=== PATIENT | female | born 1985 | race Hispanic/Latino ===

== ENCOUNTER 2018-03-09 05:40 | Day surgery (SDC) | payer OTHER ==
[~2018-03-09] VITALS: Ht 154.9 cm; Wt 93.0 kg
--- NOTE | ~2018-03-09 | OR ---
[facility] [address] [place], [place] [address] Draft DATE OF OPERATION: 03/09/2018 SURGEON: Kaylah Herman MD PREOPERATIVE DIAGNOSES: Dyspareunia, dysmenorrhea. POSTOPERATIVE DIAGNOSES: Dyspareunia, dysmenorrhea, pelvic adhesions. PROCEDURE: Laparoscopy with lysis of adhesions. ANESTHESIA: General ET. ESTIMATED BLOOD LOSS: Minimal. DRAINS: None. INDICATIONS AND FINDINGS: The patient is a 32-year-old female, 4, para 2, AB 2, who has been having issues with increasing dyspareunia. She was also finding that her periods were more painful, especially on OCPs. Was felt that she may have endometriosis and that further evaluation was indicated. At the time of surgery, exam under anesthesia, which was unremarkable. At the time of laparoscopy, there was no evidence of endometriosis. She did have some adhesions around her right tube and ovary presumably from her prior appendectomy. DESCRIPTION OF PROCEDURE: The patient was prepped and draped in the dorsal lithotomy position. An open-sided speculum was placed. The cervix was visualized and grasped on the anterior lip with a single-tooth tenaculum. A Hulka clamp was then placed and tenaculum and speculum removed. Attention was then directed above. The infraumbilical area was injected with 0.5% Marcaine plain. An incision was made with a knife. Each layer was then serially elevated and incised until the fascia was opened and identified. Stay sutures of 0 Vicryl were placed. The peritoneum was opened bluntly. The Piotr cannula was then placed and tied into place. Following this, the CO2 was introduced into the abdomen. PATIENT NAME: RICH WEEMS OPERATIVE REPORT DATE OF : 85 REPORT #: [id number] PHYSICIAN: KAYLAH HERMAN MD PCP: NO PRIMARY CARE PHYSICIAN REPORT IS CONFIDENTIAL AND NOT TO BE RELEASED WITHOUT AUTHORIZATION [facility] [address] [place], [place] [address] Draft The abdomen was inspected and it was felt that a 2nd port was needed. This was placed on the patient's left side slightly below the umbilicus and fairly laterally. This area was transilluminated, injected with the Marcaine, incision made with a knife and a 5 mm port placed under direct vision. The pelvis was then thoroughly investigated. There was no evidence of any endometriosis in any area including over the ovaries and then the cul-de-sac. There were adhesions around the right tube and ovary and these were incised with monopolar scissors. This allowed for freedom on the right side. Following this, there appeared to be no other pathology, the procedure was terminated. The instruments were removed from the abdomen after allowing as much CO2 as possible to escape. The fascial incision of the umbilicus was reidentified and was closed with a running suture of 0 Vicryl. The skin incisions were closed with subcuticular sutures of 3-0 Vicryl Rapide. Attention was directed down below and the instruments were removed. Good hemostasis was noted at the cervix. The Laguerre catheter was removed at the end of the case as well. The patient was taken to the recovery room in good condition. Kaylah Herman MD PJW/MODL /[id number] Copies: ~ PATIENT NAME: RICH WEEMS MAVERICK OPERATIVE REPORT DATE OF : 85 REPORT #: [id number] PHYSICIAN: KAYLAH HERMAN MD PCP: NO PRIMARY CARE PHYSICIAN REPORT IS CONFIDENTIAL AND NOT TO BE RELEASED WITHOUT AUTHORIZATION
[~2018-03-09 05:40] MED LIST: ALEVE220 MG PO; HYDROCODON-ACE1 EA10 PO; IBUPROFEN200 M1 PO; MONO-LINYAH1 EACH PO; TRAMADOL HCL50 MG PO
--- NOTE | 2018-03-09 09:14 | NUR ---
03/09/18 0914 Cheli Hutchinson 0977-PATIENT ARRIVED TO PACU ON 10L MASK O2 SAT 100% NONAROUSABLE. ORAL AIRWAY IN PLACE. 2 SITES TO ABDOMEN BANDAIDS CDI. DANA PAD AND MESH UNDERWEAR IN PLACE. RR EVEN. SR.
--- NOTE | 2018-03-09 10:01 | NUR ---
PT REQ TO GET UP TO BR. PT AMBULATES WELL AND DENIES DIZZINESS. PT UNABLE TO VOID. BACK IN BED. SCDS IN PLACE. JELLO AND ICED WATER GIVEN. FAMILY @ BS. CALL LIGHT W/IN REACH.
[2018-03-09] MEDS ORDERED: ONDANSETRON ODT8 MG PO (10:15)
[2018-03-09] MEDS ORDERED: PERCOCET 5-3251 EACH PO (10:15)
--- NOTE | 2018-03-09 10:35 | NUR ---
PT RESTING,ALERT, ORIENTED AND SUPPORTED BY FAMILY. PT SEEMS PREPARED, HAD FEW QUESTIONS, EXTENDED A BLESSING. WILL FOLLOW NEEDED
--- NOTE | 2018-03-09 10:58 | NUR ---
PT UP TO BR W/RN STANDBY. PT AMBULATES WELL AND DENIES DIZZINESS. PT VOIDS 100 ML BLOOD TINGED URINE AND REQ DC HOME. DC INSTRUCTIONS GIVEN AND PT VERBALIZES UNDERSTANDING. PT DRESSING SELF.
--- NOTE | 2018-03-09 13:18 | NUR ---
LE 1110: PT TRANSFERS SELF TO AND PERSONAL VEHICLE AND DOES THAT WELL.
== END 2018-03-09 11:10 | disposition home or self-care (01) ==
LOC: DS 05:40
PROVIDERS: Obstetrics & Gynecology
PROC: 0UN04ZZ Release Right Ovary, Percutaneous Endoscopic Approach (ICD-10-PCS; principal; 2018-03-09 06:45)
DX: N94.12 Deep dyspareunia (principal); N94.11 Superficial (introital) dyspareunia; N94.6 Dysmenorrhea, unspecified; N73.6 Female pelvic peritoneal adhesions (postinfective); E66.01 Morbid (severe) obesity due to excess calories; G43.909 Migraine, unspecified, not intractable, without status migrainosus; Z88.5 Allergy status to narcotic agent; Z68.41 Body mass index [BMI] 40.0-44.9, adult
CPT/HCPCS: 00840; J0330; J1100; J1885; J2250; J2405; J2597; J2704; J2765; J3010; J7120

== ENCOUNTER 2020-03-06 15:03 | Observation (INO) | payer OTHER ==
[~2020-03-06] VITALS: Ht 152.4 cm; Wt 103.0 kg
--- NOTE | ~2020-03-06 | OBS ---
[facility] [address] [place], [place] [address] Draft DATE OF SERVICE: 03/06/2020 NOTE: The patient is a 34-year-old female, who underwent TLHBS and cystoscopy earlier today. The surgery itself was completely uncomplicated. She was discharged home several hours after surgery in apparent good condition; however, when she arrived at home, her pain seemed to dramatically increase, and she had which she described as a lot of vaginal bleeding, which was running down her legs, soaking maxi pad. She described it as bright red, but thin. The patient also reports migraine since her surgery. For her past medical history, please see her initial H and P. On exam, her vital signs were stable. She is a well-developed, obese female in moderate distress. She was walking very slowly with apparent abdominal discomfort. The abdomen had active bowel sounds. It was soft, but diffusely tender. The incisions appeared to be normal with minimal drainage. A speculum exam was then done, and there was only a small amount of blood within the vault. The cuff appeared intact. IMPRESSION: Because of the apparent heavy bleeding in her increased pain, it was felt prudent to admit her for observation to be sure this did not represent a postop bleed from the cuff. PLAN: Admit to obs, IV hydration, n.p.o., IV pain medications, check serial CBCs, and possible return to OR if ongoing heavy bleeding. MD PAOLA Perez/YOLY /[id number] Copies: ~ PATIENT NAME: RICH WEEMS OBSERVATION NOTE DATE OF : 85 REPORT #: [id number] PHYSICIAN: ROLA NIETO MD PCP: PAT CHIN NP REPORT IS CONFIDENTIAL AND NOT TO BE RELEASED WITHOUT AUTHORIZATION
--- OUTSIDE RECORDS SUMMARY | ~2020-03-06 | XMS | Encounter Summary ---
Demographics + + + | Address | [address] | | | [place] [address] | + + + | Home Phone | | + + + | Preferred Language | Unknown | + + + | Marital Status | Single | + + + | Roman Catholic Affiliation | Unknown | + + + | Race | White | + + + | Ethnic Group | or | + + + Author + + + | Author | [facility] | | | and [place] | + + + | Organization | [facility] | | | and [place] | + + + | Address | Unknown | + + + | Phone | Unavailable | + + + Support + + +---------+ + | Name | Relationship | Address | Phone | + + +---------+ + | Nehal Rooney | ECON | Unknown | Unavailable | + + +---------+ + Care Team Providers + +------+ + | Care Machine Pack Assembler Name | Role | Phone | + +------+ + PCP | Unavailable | + +------+ + Encounter Details +--------+ + + + + | Date | Type | Department | Care Team | Description | +--------+ + + + + | 02/04/ | Orders Only | [facility] | [place], | | | 2016 | | [facility] | [address] | | | | | [address] | [address] [place], | | | | | [address] [place], [place] | [place] [address] | | | | | [address] | [phone] | | | | | [phone] | | | +--------+ + + + + Social History + +-------+ +--------+------+ | Tobacco Use | Types | Packs/Day | Years | Date | | | | | Used | | + +-------+ +--------+------+ | Never Smoker | | | | | + +-------+ +--------+------+ + + + | Sex Assigned at | Date Recorded | | | | + + + | Not on file | | + + + documented as of this encounter Plan of Treatment Not on filedocumented as of this encounter Visit Diagnoses Not on filedocumented in this encounter"
--- OUTSIDE RECORDS SUMMARY | ~2020-03-06 | XMS | Encounter Summary ---
Demographics + + + | Address | [address] | | | [place] [address] | + + + | Home Phone | | + + + | Preferred Language | Unknown | + + + | Marital Status | Single | + + + | Uatsdin Affiliation | Unknown | + + + | Race | White | + + + | Ethnic Group | or | + + + Author + + + | Author | [facility] | | | and [place] | + + + | Organization | [facility] | | | [...] Team Providers + +------+ + | Care Slasher Machine Operator Name | Role | Phone | + +------+ + PCP | Unavailable | + +------+ + Encounter Details +--------+ + + + + | Date | Type | Department | Care Team | Description | +--------+ + + + + | 07/26/ | Emergency | [facility] | Laurence Gorman, | Intractable migraine | | 2016 | | MEDICAL [facility]ENTER | [facility] [address] | without status | | | | EMERGENCY CENTER | [place] [address] | migrainosus, | | | | [address] [facility] | [phone] | unspecified migraine | | | | [place], [place] | | type | | | | [address] | | | | | | [phone] | | | +--------+ + + + + Social History + +-------+ +--------+------+ | Tobacco Use | Types | Packs/Day | Years | Date | | | | | Used | | + +-------+ +--------+------+ | Never Assessed | | | | | + +-------+ +--------+------+ + + + | Sex Assigned at | Date Recorded | | | | + + + | Not on file | | + + + documented as of this encounter Last Filed Vital Signs + + + + + | Vital Sign | Reading | Time Taken | Comments | + + + + + | Blood Pressure | 104/60 | 07/26/2015 11:49 PM | | | | | PST | | + + + + + | Pulse | 91 | 07/26/2015 11:49 PM | | | | | PST | | + + + + + | Temperature | 36.9 C (98.4 F) | 07/26/2015 11:49 PM | | | | | PST | | + + + + + | Respiratory Rate | 16 | 07/26/2015 11:49 PM | | | | | PST | | + + + + + | Oxygen Saturation | - | - | | + + + + + | Inhaled Oxygen | - | - | | | Concentration | | | | + + + + + | Weight | 94.5 kg (208 lb 5.4 | 07/26/2015 11:49 PM | | | | oz) | PST | | + + + + + | Height | - | - | | + + + + + | Body Mass Index | - | - | | + + + + + documented in this encounter Laurence Moody, MD - 07/26/2015 9:23 PM PST ED Provider Notes by Rosalie Gorman MD at 07/26/152122 Author: Rosalie Gorman MD Service: (none) Author Type: Physician Filed: 07/28/15 0034 Date of Service: 07/26/152122 Status: Signed Brazing Machine Operator: Rosalie Gorman MD (Physician) [facility] Department of Emergency Medicine 10:04 PM History of Present Illness Patient Identification Wendy Hayes is a 30 y.o. female. Patient information was obtained from patient. History/Exam limitations: none. Patient presented to the Emergency Department by: Car Chief Complaint Chief Complaint Patient presents with Headache Recurrent Or Known Dx Migraines The patient complains of a headache. Onset of symptoms was today at 5 PM, with a constant c ourse since that time. The patient also complains of nausea, emesis and photophobia. She has a hx of headaches/migraines in the past. Patient is usually seen at [facility]. She used to get these migraines about 3 times a month but happen about once a month now which is trig gered by stress or fatigue. Past Medical History Diagnosis Date Migraine Past Surgical History Procedure Laterality Date Eye surgery eye implants bilaterally Tonsillectomy Appendectomy Leep Prior to Admission medications Not on File Allergies Allergen Reactions Morphine Anaphylaxis History Social History Marital Status: Single Spouse Name: N/A Number of Children: N/A Years of Education: N/A Occupational History Not on file. Social History Main Topics Smoking status: Never Smoker Smokeless tobacco: Not on file Alcohol Use: No Drug Use: No Sexual Activity: Not on file Other Topics Concern Not on file Social History Narrative No narrative on file History reviewed. No pertinent family history. Review of Systems Constitutional: No fever ENT: Positive for photophobia No blindness, no rhinitis, no sore throat Cardiovascular: No chest pain Respiratory: No shortness of breath, cough Gastrointestinal: Positive for nausea and vomiting No abdominal pain, diarrhea black or bloody stools Genitourinary: No dysuria, hematuria Musculoskeletal: No acute physical injury. Skin: No laceration or rash Neuro and psych: Positive for headache No head injury, seizure Endocrine/Heme/Lymph: No easy bruising or bleeding. Physical Exam BP 117/68 mmHg | Pulse 88 | Temp(Src) 97.4 F (36.3 C) (Temporal) | Resp 15 | Wt 94.5 kg (208 lb 5.4 oz) | SpO2 97% Vital Sign interpretation: Normal Pulse Oximetry interpretation: Normal General: Alert, actively vomiting on exam Eyes: Non-icteric ENT: Normal external exam Neck: Supple No neck stiffness Cardiovascular: Warm and well perfused Respiratory: No respiratory distress Extremities: MARTIN Back: Normal ROM Skin: Color normal Warm and dry No rash Neuro: Alert, no AMS No gross motor/sensory deficits Cranial nerves grossly intact Medical Decision Making and Emergency Department Course ED Department Course This is typical for pt's migraine presentation, she tells me. I see no red flags. I will give my migraine cocktail - 20 mg IV reglan in 1 L of NS, 25 mg of benadryl, and 15 of torad ol. 11:09 PM Patient rechecked. She is feeling better at this time after the migraine cocktail. Headache gone, and pt ready to go. Discussed plan for discharge with patient. Patient understands and agrees to plan. I Discus sed signs and symptoms that would necessitate a return to the ED. All patient questions and concerns addressed at this time. Patient is ready for discharge. Records Reviewed Old medical records. Nursing notes. ED Diagnosis Final diagnosis Intractable migraine without status migrainosus, unspecified migraine type Disposition: ED Disposition Orders Discharge Condition at discharge: Stable Follow-up Information Follow up With Details Comments Contact Info [facility] Emergency Department If symptoms worsen [address] [place] [id number] Your primary care physician Schedule an appointment as soon as possible for a visit in 3 days As needed Discharge Medications: There are no discharge medications for this patient. Procedures Additional Documentation Procedures Attending Note: Documentation assistance provided by Daniela Greenberg (Scribe). Information recorded by the scribe has been reviewed and validated by me. I ag ree with its contents. MD Rosalie Leon MD 07/28/15 0034 documented in this en counter Plan of Treatment Not on filedocumented as of this encounter Visit Diagnoses + + | Diagnosis | + + | Intractable migraine without status migrainosus, unspecified migraine type | + + documented in this encounter"
--- OUTSIDE RECORDS SUMMARY | ~2020-03-06 | XMS | Clinical Summary ---
Demographics + + + | Address | [address] | | | [place] [address] | + + + | Home Phone | | + + + | Preferred Language | Unknown | + + + | Marital Status | Single | + + + | Scientologist Affiliation | Unknown | + + + | Race | White | + + + | Ethnic Group | or | + + + Author + + + | Author | [facility] | | | and [place] | + + + | Organization | [facility] | | | [...] Team Providers + +------+ + | Care Esol Teacher Assistant Name | Role | Phone | + +------+ + PCP | Unavailable | + +------+ + Allergies + + + + + + | Active Allergy | Reactions | Severity | Noted | Comments | | | | | Date | | + + + + + + | Morphine | Anaphylaxis | High | 07/26/19 | | | | | | 16 | | + + + + + + Medications + + + +---------+------+------+-------+ | Medication | Sig | Dispensed | Refills | Star | End | Statu | | | | | | t | Date | s | | | | | | Date | | | + + + +---------+------+------+-------+ | MONO-LINYAH | | | 0 | 04/2 | | Activ | | 0.25-35 MG-MCG per | | | | 8/20 | | e | | tablet | | | | 16 | | | + + + +---------+------+------+-------+ | | take 1 tablet by | 82 each | 0 | 03/0 | | Activ | | levonorgestrel-ethin | mouth once daily | | | 2/20 | | e | | yl estradiol | | | | 18 | | | | (DWAYNE) 0.15-0.03 | | | | | | | | &0.01 MG TABS | | | | | | | + + + +---------+------+------+-------+ Active Problems Not on file Family History + + +------+ + | Medical History | Relation | Name | Comments | + + +------+ + | Cancer | Maternal | | | | | Aunt | | | + + +------+ + | Cancer | Maternal | | | | | Aunt | | | + + +------+ + | Cancer | Paternal | | | | | Aunt | | | + + +------+ + + +------+--------+ + | Relation | Name | Status | Comments | + +------+--------+ + | Maternal Aunt | | | | + +------+--------+ + | Maternal Aunt | | | | + +------+--------+ + | Paternal Aunt | | | | + +------+--------+ + Social History + +-------+ +--------+------+ | [...] on file | | + + + Last Filed Vital Signs + + + + + | Vital Sign | Reading | Time Taken | Comments | + + + + + | Blood Pressure | 106/70 | 01/31/2016 9:51 AM | | | | | PDT | | + + + + + [...] + + + + | Weight | 97.7 kg (215 lb 6.4 | 01/31/2016 9:51 AM | | | | oz) | PDT | | + + + + + | Height | 154.9 cm (5' 1") | 01/31/2016 9:51 AM | | | | | PDT | | + + + + + | Body Mass Index | 40.7 | 01/31/2016 9:51 AM | | | | | PDT | | + + + + + Plan of Treatment + + + + + | Health Maintenance | Due Date | Last | Comments | | | | Done | | + + + + + | Vaccine: | | | | | Dtap/Tdap/Td (1 - | 4 | | | | Tdap) | | | | + + + + + | Vaccine: Influenza | | | | | (#1) | 0 | | | + + + + + | Cervical Cancer | | 10/25/19 | | | Screening (Pap) | 1 | 16 | | + + + + + Results Not on filefrom Last 3 Months
--- OUTSIDE RECORDS SUMMARY | ~2020-03-06 | XMS | Encounter Summary ---
Demographics + + + | Address | [address] | | | [place] [address] | + + + | Home Phone | | + + + | Preferred Language | Unknown | + + + | Marital Status | Single | + + + | Buddhist Affiliation | Unknown | + + + | Race | White | + + + | Ethnic Group | or | + + + Author + + + | Author | [facility] | | | and [place] | + + + | Organization | [facility] | | | and [...] Team Providers + +------+ + | Care Motor Route Carrier Name | Role | Phone | + +------+ + PCP | Unavailable | + +------+ + Encounter Details +--------+ + + + + | Date | Type | Department | Care Team | Description | +--------+ + + + + | 01/30/ | Orders Only | [facility] | [place], | | | 2016 | | [address] | [address] | | | | | [facility] | [address] [place], | | | | | [address] | [place] [address] | | | | | [phone] | [phone] | | | | | | | | +--------+ + + + [...] Not on filedocumented as of this encounter Procedures + +--------+ + + + | Procedure Name | Priori | Date/Time | Associated Diagnosis | Comments | | | ty | | | | + +--------+ + + + | CULTURE, URINE | Routin | 01/31/2016 | | Results for this | | | e | 10:45 AM | | procedure are in the | | | | PDT | | results section. | + +--------+ + + + | T3, FREE | Routin | 01/31/2016 | | Results for this | | | e | 10:41 AM | | procedure are in the | | | | PDT | | results section. | + +--------+ + + + | TSH | Routin | 01/31/2016 | | Results for this | | | e | 10:41 AM | | procedure are in the | | | | PDT | | results section. | + +--------+ + + + | T4, FREE | Routin | 01/31/2016 | | Results for this | | | e | 10:41 AM | | procedure are in the | | | | PDT | | results section. | + +--------+ + + + | HEMOGLOBIN A1C | Routin | 01/31/2016 | | Results for this | | | e | 10:41 AM | | procedure are in the | | | | PDT | | results section. | + +--------+ + + + documented in this encounter Results Culture, Urine (01/31/2016 10:45 AM PDT) + + | Specimen | + + | Urine specimen | | (specimen) | + + + + + | Narrative | Performed At | + + + | Specimen Description CLEAN CATCH URINE CULTURE | EXTERNAL LAB | | 50,000 TO 100,000 CFU/ML | | | MIXED GRAM POSITIVE | | | LIBRA NO FURTHER | | | WORKUP | | + + + + +---------+ + + | Performing | Address | City/State/Zipcode | Phone Number | | Organization | | | | + +---------+ + + | EXTERNAL LAB | | | | + +---------+ + + T3, Free (01/31/2016 10:41 AM PDT) + +-------+ + + + | Component | Value | Ref Range | Performed | Pathologist | | | | | At | Signature | + +-------+ + + + | T3, Free | 3.4 | 2.18 - 3.98 | EXTERNAL | | | | | pg/mL | LAB | | + +-------+ + + + + + | Specimen | + + | Blood specimen | | (specimen) | + + + +---------+ + + | Performing | Address | City/State/Zipcode | Phone Number | | Organization | | | | + +---------+ + + | EXTERNAL LAB | | | | + +---------+ + + TSH (01/31/2016 10:41 AM PDT) + +-------+ + + + | Component | Value | Ref Range | Performed | Pathologist | | | | | At | Signature | + +-------+ + + + | TSH | 0.51 | 0.45 - 5.10 | EXTERNAL | | | | | u[iU]/mL | LAB | | + +-------+ + + + + + | Specimen | + + | Blood specimen | | (specimen) | + + + +---------+ + + | Performing | Address | City/State/Zipcode | Phone Number | | Organization | | | | + +---------+ + + | EXTERNAL LAB | | | | + +---------+ + + T4, Free (01/31/2016 10:41 AM PDT) + +-------+ + + + | Component | Value | Ref Range | Performed | Pathologist | | | | | At | Signature | + +-------+ + + + | FREE T4 | 1.2 | 0.7 - 1.5 ng/dL | EXTERNAL | | | (REF) | | | LAB | | + +-------+ + + + + + | Specimen | + + | Blood specimen | | (specimen) | + + + +---------+ + + | Performing | Address | City/State/Zipcode | Phone Number | | Organization | | | | + +---------+ + + | EXTERNAL LAB | | | | + +---------+ + + Hemoglobin A1C (01/31/2016 10:41 AM PDT) + + + + + + | Component | Value | Ref Range | Performed | Pathologist | | | | | At | Signature | + + + + + + | Hemoglobin | 5.8Comment: The [place] | 4.0 - 6.0 % | EXTERNAL | | | A1c | Diabetes Association | | LAB | | | | considers a hemoglobin | | | | | | A1c result of <7.0% to | | | | | | be the goal of diabetic | | | | | | therapy. When results | | | | | | are consistently >8.0%, | | | | | | the ADA suggests | | | | | | reevaluation of the | | | | | | treatment regimen. The | | | | | | testing method used is | | | | | | certified traceable to | | | | | | the Diabetes Control and | | | | | | Complications Trial | | | | | | reference method. | | | | + + + + + + | Glycohemogl | 120Comment: The ADA | mg/dL | EXTERNAL | | | obin | considers an eAG result | | LAB | | | (GHb),Total | of LT 154 mg/dL to be | | | | | | the goal of diabetic | | | | | | therapy. Estimated | | | | | | Average Glucose | | | | | | calculated from | | | | | | hemoglobin A1c by use of | | | | | | the ADA recommended | | | | | | formula. | | | | + + + + + + + + | Specimen | + + | | + + + +---------+ + + | Performing | Address | City/State/Zipcode | Phone Number | | Organization | | | | + +---------+ + + | EXTERNAL LAB | | | | + +---------+ + + documented in this encounter Visit Diagnoses Not on filedocumented in this encounter"
--- OUTSIDE RECORDS SUMMARY | ~2020-03-06 | XMS | Encounter Summary ---
Demographics + + + | Address | [address] | | | [place] [address] | + + + | Home Phone | | + + + | Preferred Language | Unknown | + + + | Marital Status | Single | + + + | Holiness Affiliation | Unknown | + + + | Race | White | + + + | Ethnic Group | or | + + + Author + + + | Author | [facility] | | | and [place] | + + + | Organization | [facility] | | | and [...] Team Providers + +------+ + | Care Die Casting Supervisor Name | Role | Phone | + +------+ + PCP | Unavailable | + +------+ + Encounter Details +--------+ + + + + | Date | Type | Department | Care Team | Description | +--------+ + + + + | 10/23/ | Orders Only | [facility] | Conversion | | | 2016 | | CONVERSION DEP 888 | Transaction, | | | | | [place] | Provider Unknown | | | | | [place] | | | | | | [phone] | (Fax) | | | | | | | [...]
--- OUTSIDE RECORDS SUMMARY | ~2020-03-06 | XMS | Encounter Summary ---
Demographics + + + | Address | [address] | | | [place] [address] | + + + | Home Phone | | + + + | Preferred Language | Unknown | + + + | Marital Status | Single | + + + | Adventist Affiliation | Unknown | + + + | Race | White | + + + | Ethnic Group | or | + + + Author + + + | Author | [facility] | | | and [place] | + + + | Organization | [facility] | | | [...] Team Providers + +------+ + | Care Braille Teacher Name | Role | Phone | + +------+ + PCP | Unavailable | + +------+ + Encounter Details +--------+ + + + + | Date | Type | Department | Care Team | Description | +--------+ + + + + | 08/20/ | Orders Only | [facility] | [place], | | | 2018 | | [facility] | [address] | | | | | [address] | [address], | | | | | [address] [place], [place] | [place] [address] | | | | | [address] | [phone] | | | | | [phone] | | | +--------+ + + + [...]
[~2020-03-06 15:03] MED LIST changes: +EFFEXOR XR37.5 MG PO; +HARD NAILS2500 MCG PO; +INDERAL LA60 MG PO; +KETOROLAC TROME10 MG PO; +MOTRIN IB200 MG PO; +MULTI-VITAMIN1 EACH PO; +ONDANSETRON ODT8 MG PO; +PERCOCET 5-3251 EACH PO; +VITAMIN B125000 MCG PO
--- NOTE | 2020-03-06 18:57 | NUR ---
IN PTS ROOM TO GIVE PT 1MG OF DILUADID FOR PTS PAIN. THIS RN HAD PT GET UP TO TOILET TO CHANGE PT. PTS PAD FROM HOME HAD SLIGHT SPOTTING, PT STATED "THIS LOOKS MUCH BETTER FROM EARLIER" PT CHANGED PAD AT THIS TIME.
--- NOTE | 2020-03-06 19:34 | NUR ---
SHIFT REPORT FROM NURSE ROSS. PT IN BED, RESTING COMFORTABLY. NO NEEDS AT THIS TIME. CALL LIGHT WITHIN REACH
--- NOTE | 2020-03-06 20:10 | NUR ---
ASSESSMENT COMPLETE. PT IN BED AND RATES PAIN 3/10 WHICH IS TOLERABLE FOR HER. VSS. INFUSION ORDERED. SCDS ON . UMBILICAL LAP SITE HAD SATURATED SIMPLE CURAD BANDAID WITH SEROSANGUINOUS FLUID SO 2 NEW BANDAIDS APPLIED. BOTH LATERAL LAP SITES WNL. IS IN ROOM AND PLANS ON STAYING THE NIGHT. PT TO CALL FOR ASSISTANCE TO TOILET. NO FURTHER NEEDS AT THIS TIME. CALL LIGHT RAIMUNDO ALBERT.
--- NOTE | 2020-03-06 23:39 | NUR ---
CALL LIGHT ANSWERED. SBA TO TOILET TO VOID. PT RATES PAIN 7/10 IN ABDOMEN AND REQUESTS PRN PAIN MEDS. 1MG DILAUDID IV ADMINISTERED. NO FURTHER NEEDS AT THIS TIME. CALL LIGHT WITHIN REACH
--- NOTE | 2020-03-07 05:46 | NUR ---
CALL LIGHT ANSWERED. PT REQUESTS PRN PAIN MEDS FOR ABDOMINAL PAIN OF 7-8/10. PRN DILAUDID ADMINISITERED. PT SBA ASSIST TO TOILET TO VOID.
--- NOTE | 2020-03-07 05:47 | NUR ---
ASSESSMENT COMPLETE. VSS ALTHOUGH PT IS TACHY AFTER RETURNING FROM TOILET VISIT. WOUND DRESSINGS ARE ALL UNCHANGED FROM BEGINNING OF SHIFT. PT REPORTS ONLY VERY SMALL AMOUNT OF BLOOD IN PAD FROM BEGINNNING OF THIS SHIFT. NO FURTHER NEEDS AT THIS TIME. CALL LIGHT WITHIN REACH
[2020-03-07] MEDS ORDERED: VENLAFAXINE HCL75 M1 PO (07:12)
--- NOTE | 2020-03-07 07:20 | NUR ---
REPORT RECEIVED FROM ALLYSON RODRIGUEZ. PT RESTING IN BED WITH EYE CLOSED. RESPIRATIONS EVEN AND UNLABORED. BED RAILS UP. FAMILY AT BEDSIDE. PT ALLOWED TO REST.
[2020-03-07] MEDS ORDERED: MONO-LINYAH1 EACH PO (08:15)
--- NOTE | 2020-03-07 09:28 | NUR ---
MORNING ASSESSMENT AND MEDICATION DUE. PT RESTING IN BED, VISITING WITH . PT RPEORTS 6/10 PAIN, SEE MAR FOR MEDICATION GIVEN. FLU VACCINE GIVEN. LAPAROSCOPIC SITES X3 INTACT WITH NO NEW DRAINAGE NOTED. BANAIDS IN PLACE. MINIMAL SPOTTING NOTED TO DANA PAD. PT DENIES NAUSEA. BREAKFAST ORDER PLACED. IV SALINE LOCKED PER MD ORDER. PT EATING BREAKFAST NO ADDITIONAL REQUESTS OR COMPLAINTS AT THIS TIME. AT BEDSIDE. CALL LIGHT WITHIN REACH.
--- NOTE | 2020-03-07 09:49 | NUR ---
PT CALL LIGHT ON. PT REQUESTS ADDITIONAL PAIN MEDICATION FOR 7/10 ACHEING PAIN LOWER ABDOMEN. SEE MAR FOR MEDICATION GIVEN. PT UP TO RESTROOM, STAND BY ASSIST FROM . NO ADDITIONAL REQUESTS OR COMPLAINTS. PT TOELRATED BREAFKAST WELL, NO NAUSEA AT THIS TIME. CALL LIGHT WITHIN REACH. NO ADDITIONAL REQUESTS OR COMPLAINTS.
--- NOTE | 2020-03-07 10:00 | NUR ---
SPOKE WITH PATIENT IN ROOM. ALSO AT BEDSIDE WAS BOYFRIEND CHRISTIANO. PATIENT LIVES IN HOUSE WITH STAIRS WITH CHRISTIANO. HAS NO AMBULATION ISSUES. USES NO DME. PT IS EMPLOYED AND DRIVES. SHE DENIES CONCERNS FOR AFFORDING MEDS, FOOD OR UTILITIES. SHE PLANS AND FEELS SAFE TO RETURN HOME AT DISCHARGE. CHRISTIANO WILL DRIVE HER HOME. NO BARRIERS TO DISCHARGE AT THIS TIME.
--- NOTE | 2020-03-07 10:44 | NUR ---
THIS RN TO ROOM TO CHECK ON PT. PT REPORTS ACHING PAIN IN LOWER ABDOMEN IS NOW AT 3/10 AND WELL CONTROLED. PT DENIES NAUSEA. PT UP TO CHAIR. NO ADDITIONAL REQUESTS OR COMPLAINTS. PHARMACIST TO BEDSIDE TO TALK WITH PT. CALL LIGHT WITHIN REACH.
--- NOTE | 2020-03-07 12:13 | NUR ---
THIS RN TO ROOM TO CHECK ON PT. PT EATING LUNCH. PT DENIES NAUSEA AND REPORTS 3/10 PAIN THAT IS "TOLERABLE." PT UP TO CHAIR AND ENCORUAGED TO AMBULATE AFTER LUNCH. AT BEDSIDE. NO ADDITIONAL REQUESTS OR COMPLAINTS. CALL LIGHT WITHIN REACH.
--- NOTE | 2020-03-07 12:45 | NUR ---
THIS RN TO ROOM WITH MD FOR ROUNDS. PT CONTINUES TO REPORTS 3/10 PAIN AND DENIES NAUSEA. ORDERS FOR DISCHARGE PLACED. PT UP TO DRESS SELF, STEADY ON FEET WITH STAND BY ASSIST. DANA PAD CONTINUES TO SHOW SCANT AMOUNT OF DRAINAGE. BONE TENDER TO BEDSIDE TO DC'D IV . NO ADDITIONAL REQUESTS OR COMPLAINTS AT THIS TIME. CALL SAMANTA ALBERT.
--- NOTE | 2020-03-07 13:20 | NUR ---
IV TAKEN OUT UPON RN REQUEST. CATH INTACT AND LOOKED GOOD, RN NOTIFIED. CALL LIGHT IN REACH. NO FURTHER NEEDS AT THIS TIME.
--- NOTE | 2020-03-07 13:37 | NUR ---
PT READY FOR DISCHARGE. VITALS TAKEN. PHARMACIST TO BEDSIDE TO REVIEW MEDICATIONS WITH PT. PT VERBALIZES UNDERSTANDING OF MEDICATIONS AND STATES HER QUESTIONS HAVE BEEN ANSWERED. DISCHARGE INSTRUCTIONS REVIEWED WITH PT AND . PT AND STATE THEIR QUESTIONS HAVE BEEN ANSWERED AND VERBALIZE UNDERSTANDING OF LIFTING RESTRICTIONS, MEDICATIONS, AND FOLLOW UP APPOINTMENT. PT TRANSFERES SELF TO WHEELCHAIR. PT WHEELED FROM UNIT, NO ADDITIONAL CONCERNS OR REQUESTS.
--- NOTE | 2020-03-07 14:34 | NUR ---
PATIENT SAID SHE WILL TAKE A SHOWER AT HOME WHEN SHE CAN.
== END 2020-03-07 13:45 | disposition home or self-care (01) ==
LOC: MS 15:03
PROVIDERS: ADMIT Obstetrics & Gynecology; ATTEND Obstetrics & Gynecology
DX: N99.820 Postprocedural hemorrhage of a genitourinary system organ or structure following a genitourinary system procedure (principal); Z20.828 Contact with and (suspected) exposure to other viral communicable diseases; Z23 Encounter for immunization; Z90.710 Acquired absence of both cervix and uterus; Z88.5 Allergy status to narcotic agent; G43.909 Migraine, unspecified, not intractable, without status migrainosus
CPT/HCPCS: 36415; 80048; 85025; 90686; 96374; 96375; 96376; G0008; G0378; G0379; J1170; J2405; J2765; J7121